=== PATIENT | female | born 1945 | race Caucasian/White ===

== ENCOUNTER 2017-06-14 15:11 | Inpatient (IN) | payer MEDICARE, BC ==
[~2017-06-14] VITALS: Ht 154.9 cm; Wt 109.1 kg
[2017-06-14] MEDS ORDERED: SODIUM CHLORIDE 0.9% 1,000 ML IV ONE (15:32)
[2017-06-14] MEDS ORDERED: SODIUM CHLORIDE FLUSH 10ML SYR IVF ONE (16:00)
[2017-06-14 16:23] LABS: HEMATOCRIT 44.3 % (34.6-47.8); HEMOGLOBIN 14.6 g/dL (11.7-16.4); WHITE BLOOD COUNT 12.5 x10^3/uL (3.4-10)
[2017-06-14 16:33] LABS: ASPARTATE AMINO TRANSFERASE 16 U/L (15-37); BLOOD UREA NITROGEN 28 mg/dL (7-18)
[2017-06-14] MEDS ORDERED: MORPHINE SULFATE 4 MG/ML, 1ML IVPush PRN (17:00)
[2017-06-14] MEDS ORDERED: ONDANSETRON 2MG/ML, 2ML IVPush ONE (17:00)
[2017-06-14] MEDS ORDERED: MORPHINE SULFATE 4 MG/ML, 1ML ONE (17:01)
[2017-06-14] MEDS ORDERED: ONDANSETRON 2MG/ML, 2ML ONE (17:01)
[2017-06-14] MEDS ORDERED: BACL-19 PO (17:27)
[2017-06-14] MEDS ORDERED: GABA300C10 PO (17:27)
[2017-06-14] MEDS ORDERED: HYDR-3240 PO (17:27)
[2017-06-14] MEDS ORDERED: ATEN25TA PO (17:27)
[2017-06-14] MEDS ORDERED: ROPIvacaine/PF 0.5%, 20 ML ONE (18:19)
[2017-06-14] MEDS ORDERED: FENTANYL PF 100 MCG/2ML ONE ×2 (18:21)
[2017-06-14] MEDS ORDERED: ACETAMINOPHEN 325 MG TABLET PO PRN ×3 (18:30→23:00)
[2017-06-14] MEDS ORDERED: POLYETHYLENE GLYCOL 17 GM PACKET PO PRN (18:30)
[2017-06-14] MEDS ORDERED: hydrALAzine 20 MG/ML, 1ML IV ONE (18:30)
[2017-06-14] MEDS ORDERED: BISACODYL 10 MG SUPP PR PRN ×2 (18:30→23:00)
[2017-06-14] MEDS: HEPARIN 5,000 UNITS/ML, 1ML SQ SCH (18:30)
[2017-06-14] MEDS ORDERED: morphine SULFATE 10 MG/ML, 1ML IVPush PRN (18:30)
[2017-06-14] MEDS ORDERED: ONDANSETRON 2MG/ML, 2ML IVPush PRN ×2 (18:30→20:30)
[2017-06-14] MEDS ORDERED: PROPOFOL 10 MG/ML, 20ML ONE (18:59)
[2017-06-14] MEDS ORDERED: CEFAZOLIN 1,000 MG ONE (18:59)
[2017-06-14] MEDS ORDERED: HYDROmorphone 1 MG/ML, 1ML IV PRN (20:30)
[2017-06-14] MEDS ORDERED: PROMETHAZINE 25 MG/ML, 1ML IV PRN (20:30)
[2017-06-14] MEDS ORDERED: LABETALOL 5MG/ML, 20ML IV PRN (20:30)
[2017-06-14] MEDS ORDERED: hydrALAzine 20 MG/ML, 1ML IV PRN (20:30)
[2017-06-14] MEDS ORDERED: FENTANYL PF 100 MCG/2ML IV PRN (20:30)
[2017-06-14] MEDS ORDERED: EPHEDRINE 50 MG/ML, 1ML IVPush PRN (20:30)
[2017-06-14] MEDS ORDERED: HYDROcodone/APAP 7.5-325MG/15ML UDC PO PRN (20:30)
[2017-06-14] MEDS ORDERED: OXYcodone 5 MG/5 ML ORAL.SOL UDC PO PRN (20:30)
[2017-06-14] MEDS ORDERED: DIPHENHYDRAMINE 25 MG CAPSULE PO PRN (21:00)
[2017-06-14] MEDS ORDERED: HYDROmorphone 1 MG/ML, 1ML ONE (21:10)
[2017-06-14] MEDS ORDERED: OXYcodone 5 MG/5 ML ORAL.SOL UDC ONE (21:10)
[2017-06-14] MEDS ORDERED: ACETAMINOPHEN 650 MG/20.3 ML UDC ONE (21:10)
[2017-06-14] MEDS ORDERED: hydrALAzine 20 MG/ML, 1ML ONE (21:20)
[2017-06-14] MEDS ORDERED: ONDANSETRON 2MG/ML, 2ML IV PRN (22:30)
[2017-06-14] MEDS ORDERED: morphine SULFATE 10 MG/ML, 1ML IV PRN (22:30)
[2017-06-14] MEDS ORDERED: HYDROcodone/APAP 10/325 MG TABLET PO PRN (22:30)
[2017-06-14] MEDS ORDERED: MAGNESIUM HYDROXIDE 8%, 30ML UDC PO PRN (23:00)
[2017-06-14] MEDS: BACLOFEN 10 MG TABLET PO SCH (23:00)
[2017-06-14] MEDS: ATENOLOL 25 MG TABLET PO SCH (23:00)
[2017-06-14] MEDS: GABAPENTIN 300 MG CAPSULE PO SCH (23:00)
[2017-06-14] MEDS ORDERED: SENNA/DOCUSATE TABLET PO PRN (23:00)
[2017-06-14] MEDS ORDERED: ALUMINUM/MAG/SIMETHICONE 30 ML UDC PO PRN (23:00)
[2017-06-14 23:46] VITALS: BP 155/70
[2017-06-15] MEDS: D5%-LACTATED RINGERS 1,000 ML IV SCH ×3 (00:09→19:58)
[2017-06-15] MEDS: CEFTRIAXONE PMX 1GM/50ML 50 ML IV SCH ×2 (00:20→23:31)
[2017-06-15 00:53] VITALS: BP 113/63
[2017-06-15] MEDS: OXYcodone 5 MG/5 ML ORAL.SOL UDC PO PRN ×6 (01:54→23:30)
[2017-06-15] MEDS: CEFAZOLIN PMX 2GM/50ML 50 ML IVPB SCH ×3 (03:27→19:40)
[2017-06-15 03:49] VITALS: BP 155/70
[2017-06-15 04:43] VITALS: BP 148/68
[2017-06-15 06:05] LABS: HEMOGLOBIN 12.3 g/dL (11.7-16.4); WHITE BLOOD COUNT 7.5 x10^3/uL (3.4-10)
[2017-06-15 06:18] LABS: BLOOD UREA NITROGEN 24 mg/dL (7-18)
[2017-06-15 06:21] LABS: ASPARTATE AMINO TRANSFERASE 17 U/L (15-37)
[2017-06-15] MEDS: HEPARIN 5,000 UNITS/ML, 1ML SQ SCH ×3 (06:22→21:35)
[2017-06-15 07:00] VITALS: BP 137/76
[2017-06-15] MEDS ORDERED: SODIUM CHLORIDE FLUSH 10ML SYR IVF SCH (09:00)
[2017-06-15] MEDS: ATENOLOL 25 MG TABLET PO SCH ×2 (09:07→21:34)
[2017-06-15] MEDS: MULTIVITAMINS/MINERALS TABLET PO SCH (09:08)
[2017-06-15] MEDS: BACLOFEN 10 MG TABLET PO SCH ×2 (09:08→21:34)
[2017-06-15] MEDS: GABAPENTIN 300 MG CAPSULE PO SCH ×3 (09:08→21:34)
[2017-06-15] MEDS: DOCUSATE 100 MG CAPSULE PO SCH ×2 (09:09→21:34)
[2017-06-15] MEDS: SENNA/DOCUSATE TABLET PO SCH (09:10)
[2017-06-15 12:03] VITALS: BP 152/78
[2017-06-15] MEDS ORDERED: ACETAMINOPHEN 325 MG TABLET PO PRN (18:30)
[2017-06-15] MEDS ORDERED: BISACODYL 10 MG SUPP PR PRN (18:30)
[2017-06-15] MEDS ORDERED: ALUMINUM/MAG/SIMETHICONE 30 ML UDC PO PRN (18:30)
[2017-06-15 19:45] VITALS: BP 161/73
[2017-06-15] MEDS: SODIUM CHLORIDE FLUSH 10ML SYR IVF SCH (21:35)
[2017-06-16 01:37] VITALS: BP 136/75
[2017-06-16] MEDS: OXYcodone 5 MG/5 ML ORAL.SOL UDC PO PRN ×5 (03:17→20:53)
[2017-06-16] MEDS: D5%-LACTATED RINGERS 1,000 ML IV SCH (03:20)
[2017-06-16] MEDS: HEPARIN 5,000 UNITS/ML, 1ML SQ SCH ×3 (06:00→20:50)
[2017-06-16 06:02] LABS: BLOOD UREA NITROGEN 10 mg/dL (7-18)
[2017-06-16 07:12] VITALS: BP 163/75
[2017-06-16] MEDS ORDERED: NICOTINE 21 MG/24 HR PATCH.TD24 TD SCH (09:30)
[2017-06-16] MEDS ORDERED: PHARMACY INSTRUCTION MC PRN (09:30)
[2017-06-16] MEDS: SENNA/DOCUSATE TABLET PO SCH (09:39)
[2017-06-16] MEDS: MULTIVITAMINS/MINERALS TABLET PO SCH (09:39)
[2017-06-16] MEDS: GABAPENTIN 300 MG CAPSULE PO SCH ×3 (09:39→20:51)
[2017-06-16] MEDS: ATENOLOL 25 MG TABLET PO SCH ×2 (09:39→20:50)
[2017-06-16] MEDS: BACLOFEN 10 MG TABLET PO SCH ×2 (09:39→20:51)
[2017-06-16] MEDS: DOCUSATE 100 MG CAPSULE PO SCH ×2 (09:39→20:51)
[2017-06-16] MEDS: SODIUM CHLORIDE FLUSH 10ML SYR IVF SCH ×2 (09:43→20:49)
[2017-06-16 15:19] VITALS: BP 150/65
[2017-06-16 19:28] VITALS: BP 167/70
[2017-06-16] MEDS: CEFTRIAXONE PMX 1GM/50ML 50 ML IV SCH (23:32)
[2017-06-16] MEDS: DIPHENHYDRAMINE 25 MG CAPSULE PO PRN (23:32)
[2017-06-17 01:03] VITALS: BP 187/78
[2017-06-17] MEDS: OXYcodone 5 MG/5 ML ORAL.SOL UDC PO PRN ×5 (01:07→19:39)
[2017-06-17 01:08] VITALS: BP 163/63
[2017-06-17] MEDS: HEPARIN 5,000 UNITS/ML, 1ML SQ SCH ×3 (04:44→21:09)
[2017-06-17] MEDS ORDERED: HYDR25TA6 PO (06:05)
[2017-06-17] MEDS ORDERED: TRAM50TA2 PO (06:05)
[2017-06-17] MEDS ORDERED: FENO145T32 PO (06:12)
[2017-06-17] MEDS ORDERED: LEVO75TA PO (06:12)
[2017-06-17] MEDS ORDERED: DULO20CA45 PO (06:12)
[2017-06-17] MEDS ORDERED: TRAZ100T15 PO (06:12)
[2017-06-17] MEDS ORDERED: AMLO5TAB2 PO (06:12)
[2017-06-17 08:21] VITALS: BP 157/77
[2017-06-17] MEDS: BACLOFEN 10 MG TABLET PO SCH ×2 (09:07→21:08)
[2017-06-17] MEDS: MULTIVITAMINS/MINERALS TABLET PO SCH (09:07)
[2017-06-17] MEDS: ATENOLOL 25 MG TABLET PO SCH ×2 (09:07→21:08)
[2017-06-17] MEDS: GABAPENTIN 300 MG CAPSULE PO SCH ×3 (09:07→21:08)
[2017-06-17] MEDS: SODIUM CHLORIDE FLUSH 10ML SYR IVF SCH ×2 (09:07→21:08)
[2017-06-17] MEDS: SENNA/DOCUSATE TABLET PO SCH (09:07)
[2017-06-17] MEDS: DOCUSATE 100 MG CAPSULE PO SCH ×2 (09:07→21:08)
[2017-06-17] MEDS: ONDANSETRON 2MG/ML, 2ML IV PRN (09:11)
[2017-06-17 14:50] VITALS: BP 141/75
[2017-06-17 20:05] VITALS: BP 188/74
[2017-06-17] MEDS: DIPHENHYDRAMINE 25 MG CAPSULE PO PRN ×2 (21:07→22:11)
[2017-06-17 22:17] VITALS: BP 149/76
[2017-06-18] MEDS: CEFTRIAXONE PMX 1GM/50ML 50 ML IV SCH (00:12)
[2017-06-18] MEDS: OXYcodone 5 MG/5 ML ORAL.SOL UDC PO PRN ×3 (02:46→13:43)
[2017-06-18 03:54] VITALS: BP 179/71
[2017-06-18] MEDS: HEPARIN 5,000 UNITS/ML, 1ML SQ SCH (06:15)
[2017-06-18 07:46] VITALS: BP 144/67
[2017-06-18] MEDS: ONDANSETRON 2MG/ML, 2ML IV PRN (08:10)
[2017-06-18] MEDS: ATENOLOL 25 MG TABLET PO SCH (09:00)
[2017-06-18] MEDS: MULTIVITAMINS/MINERALS TABLET PO SCH (09:00)
[2017-06-18] MEDS: DOCUSATE 100 MG CAPSULE PO SCH (09:00)
[2017-06-18] MEDS: BACLOFEN 10 MG TABLET PO SCH (09:00)
[2017-06-18] MEDS: SENNA/DOCUSATE TABLET PO SCH (09:00)
[2017-06-18] MEDS: GABAPENTIN 300 MG CAPSULE PO SCH (09:00)
[2017-06-18] MEDS: SODIUM CHLORIDE FLUSH 10ML SYR IVF SCH (09:07)
[2017-06-18] MEDS ORDERED: NITR100C6 PO (11:17)
[2017-06-18 12:51] VITALS: BP 146/72
[2017-06-18] MEDS ORDERED: NITROFURANTOIN (MACROBID) 100 MG CAPSULE PO SCH (21:00)
== END 2017-06-18 14:30 | DRG 492 ==
LOC: ED 17:17 → EDIP 17:33 → 4NOR 22:20
PROVIDERS: ADMIT Internal Medicine; ATTEND Internal Medicine
PROC: 0QSG04Z Reposition Right Tibia with Internal Fixation Device, Open Approach (ICD-10-PCS; 2017-06-14)
PROC: 0T9B70Z Drainage of Bladder with Drainage Device, Via Natural or Artificial Opening (ICD-10-PCS; 2017-06-14)
PROC: 0QSJ04Z Reposition Right Fibula with Internal Fixation Device, Open Approach (ICD-10-PCS; principal; 2017-06-14 18:30)
DX: S82.851A Displaced trimalleolar fracture of right lower leg, initial encounter for closed fracture (principal); G93.41 Metabolic encephalopathy; E44.0 Moderate protein-calorie malnutrition; N39.0 Urinary tract infection, site not specified; G81.94 Hemiplegia, unspecified affecting left nondominant side; B96.1 Klebsiella pneumoniae [K. pneumoniae] as the cause of diseases classified elsewhere; E11.9 Type 2 diabetes mellitus without complications; I10 Essential (primary) hypertension; Z68.42 Body mass index [BMI] 45.0-49.9, adult; W19.XXXA Unspecified fall, initial encounter; G14 Postpolio syndrome; Z88.2 Allergy status to sulfonamides; E66.9 Obesity, unspecified; Z91.018 Allergy to other foods; M21.372 Foot drop, left foot; M79.7 Fibromyalgia; R09.02 Hypoxemia; Y93.89 Activity, other specified; Y92.89 Other specified places as the place of occurrence of the external cause; Y99.8 Other external cause status
CPT/HCPCS: 36415; 70450; 71010; 76001; 80048; 80053; 81001; 82962; 85025; 85610; 87040; 87077; 87086; 87186; 93005; 96374; 96375; C1713; J0690; J0696; J1170; J1644; J2405; J2704; J2795; J3010; J0360; J2270; J7030; J7121; Q0163